=== PATIENT | female | born 1985 | race Caucasian/White ===

== ENCOUNTER 2018-09-22 22:12 | Emergency (ER) | payer MEDICAID ==
[~2018-09-22] VITALS: Ht 170.2 cm; Wt 161.8 kg
[~2018-09-22 22:12] MED LIST: CLIN300C13 PO; PHEN-786 PO; TRAM50TA2 PO; [UNRECOGNIZED DRUG - CODE] PO
[2018-09-22 22:20] VITALS: BP 182/104
[2018-09-22] MEDS ORDERED: SALI10LI TOP (22:58)
== END 2018-09-22 23:06 | disposition home or self-care (01) ==
LOC: ER 22:13
DX: B07.9 Viral wart, unspecified (principal); Z88.0 Allergy status to penicillin; Z88.2 Allergy status to sulfonamides; Z79.899 Other long term (current) drug therapy
CPT/HCPCS: 99282

== ENCOUNTER 2018-12-31 13:17 | Emergency (ER) | payer MEDICAID ==
[~2018-12-31] VITALS: Ht 170.2 cm; Wt 167.3 kg
[~2018-12-31 13:17] MED LIST changes: +SALI10LI TOP
[2018-12-31 15:44] VITALS: BP 179/99
== END 2018-12-31 15:14 | disposition home or self-care (01) ==
LOC: ER 13:18
DX: J02.8 Acute pharyngitis due to other specified organisms (principal); B97.89 Other viral agents as the cause of diseases classified elsewhere; F17.210 Nicotine dependence, cigarettes, uncomplicated; Z88.0 Allergy status to penicillin; Z88.2 Allergy status to sulfonamides; Z79.2 Long term (current) use of antibiotics; Z79.899 Other long term (current) drug therapy
CPT/HCPCS: 87081; 87880; 99283

== ENCOUNTER 2019-02-08 21:33 | Emergency (ER) | payer MEDICAID ==
[~2019-02-08] VITALS: Ht 170.2 cm; Wt 170.4 kg
[2019-02-08 22:04] LABS: URINE HCG NEGATIVE (NEG)
[2019-02-08 22:10] LABS: CLARITY,URINE SLIGHTLY CLOUDY (Clear); COLOR,URINE YELLOW (Yellow); GLUCOSE, URINE NEGATIVE (Neg); KETONES,URINE NEGATIVE (Neg); LEUKOCYTE ESTERASE ,URINE SMALL (Neg); NITRITES, URINE NEGATIVE (Neg); OCCULT BLOOD,URINE NEGATIVE (Neg); PH,URINE 5.5 (4.8-8.0); PROTEIN,URINE TRACE mg/dl (Neg); UROBILINOGEN,URINE 0.2 E.U/dL (0.2-1.0)
[2019-02-08 22:22] LABS: UA COLLECTION TYPE CLN CATCH MIDSTREAM
[2019-02-08 22:26] LABS: BACTERIA,URINE 1+ /HPF (Neg); SQUAMOUS EPITHELIAL CELL,UR MODERATE /LPF (FEW)
[2019-02-08] MEDS ORDERED: CEPH250T PO (22:30)
[2019-02-08 22:48] VITALS: BP 155/95
== END 2019-02-08 22:48 | disposition home or self-care (01) ==
LOC: ER 21:34
DX: N39.0 Urinary tract infection, site not specified (principal); Z88.0 Allergy status to penicillin; Z88.2 Allergy status to sulfonamides; Z79.899 Other long term (current) drug therapy
CPT/HCPCS: 81001; 81025; 87077; 87088; 87186; 99283

== ENCOUNTER 2019-03-12 13:28 | Emergency (ER) | payer MEDICAID ==
[~2019-03-12] VITALS: Ht 170.2 cm; Wt 165.9 kg
[2019-03-12 13:42] VITALS: BP 161/94
[2019-03-12] MEDS ORDERED: HYDR-4383 PO (15:28)
[2019-03-12] MEDS ORDERED: HYDROcodone/acetaminophen 5mg/325mg tablet PO ONE (15:30)
[2019-03-12] MEDS ORDERED: ketorolac trometh inj. 60 MG/2 ML VIAL IM ONE (15:30)
== END 2019-03-12 15:52 | disposition home or self-care (01) ==
LOC: ER 13:29
DX: S83.8X1A Sprain of other specified parts of right knee, initial encounter (principal); G89.29 Other chronic pain; I10 Essential (primary) hypertension; F17.200 Nicotine dependence, unspecified, uncomplicated; Z88.0 Allergy status to penicillin; Z88.2 Allergy status to sulfonamides; Z79.899 Other long term (current) drug therapy; W18.39XA Other fall on same level, initial encounter; Y93.89 Activity, other specified; Y92.89 Other specified places as the place of occurrence of the external cause; Y99.8 Other external cause status
CPT/HCPCS: 96372; 99283; J1885

== ENCOUNTER 2023-11-02 18:14 | Emergency (ER) | payer MEDICAID ==
[~2023-11-02] VITALS: Ht 170.2 cm; Wt 128.6 kg
[~2023-11-02 18:14] MED LIST changes: +CLIN-216 PO; -CLIN300C13 PO; +HYDR-4383 PO
[2023-11-02 18:29] VITALS: PULSE 89
[2023-11-02] MEDS ORDERED: MUPI22OI30 TOP (19:37)
[2023-11-02 19:43] VITALS: BP 134/82; RESP 18; TEMP 98.5; O2SAT 97
== END 2023-11-02 19:44 | disposition home or self-care (01) ==
LOC: ER 18:15
DX: S31.104A Unspecified open wound of abdominal wall, left lower quadrant without penetration into peritoneal cavity, initial encounter (principal); X58.XXXA Exposure to other specified factors, initial encounter; Y93.89 Activity, other specified; Y92.89 Other specified places as the place of occurrence of the external cause; Y99.8 Other external cause status
CPT/HCPCS: 99283; A6258; A6449

== ENCOUNTER 2024-11-04 12:09 | Emergency (ER) | payer MEDICAID ==
[~2024-11-04] VITALS: Ht 170.2 cm; Wt 127.3 kg
[2024-11-04 12:20] VITALS: TEMP 98
[2024-11-04 13:51] LABS: URINE HCG NEGATIVE (NEG)
[2024-11-04 14:16] LABS: MEAN PLATELET VOLUME 6.6 FL (7.4-10.4); RED CELL DISTRIBUTION WIDTH 12.8 % (11.5-14.5)
[2024-11-04 14:45] LABS: CREATININE 0.68 MG/DL (0.40-0.90); TOTAL CARBON DIOXIDE 27.3 MMOL/L (24-32); eCRCL 107 ML/MIN; eGFR > 90 ML/MIN
[2024-11-04 14:54] VITALS: PULSE 78; RESP 16; O2SAT 100
[2024-11-04 14:57] VITALS: BP 161/121
--- NOTE | 2024-11-04 15:06 | Physician Documentation ---
History of Present Illness ~ Chief Complaint: See Chief Complaint Stated Complaint: TEST Time Seen by MD: 14:05 Primary Medical Doctor: Dr. Blakely ([facility] Mode of Arrival: POV, Ambulatory HPI Patient is seen today with complaints of concern for possible . Patient states she missed her last. And states she has been on Wegovy for about a year in his lost about 100 lb states she was previously on blood pressure medication but stopped it because her blood pressure was going too low as she was losing weight. Patient currently denies any chest pain or shortness of breath or abdominal pain but does admit to some nausea but no vomiting or diarrhea. Patient has no other concern or complaint at this time. Medication Reconciliation Allergies: Coded Allergies: Penicillins (Verified Allergy, Unknown, 02/08/19) Sulfa (Sulfonamide Antibiotics) (Verified Allergy, Unknown, 02/08/19) Scheduled Clindamycin HCl (Clindamycin HCl), 1 CAP PO TID Nitrofurantoin Macrocrystal (Macrodantin), 100 MG PO QID Salicylic Acid (Salicylic Acid), 2 DROP TOP DAILY Scheduled PRN Hydrocodone/Acetaminophen ([place] 5-325 Tablet), 1 TAB PO Q12H PRN PRN for pain Phenazopyridine Hcl (Pyridium tablet), 1 TAB PO Q8H PRN for pain Tramadol HCl (Tramadol HCl), 50 MG PO Q6H PRN, (Reported) Past Medical History Past Medical History: Hypertension, UTI Past Surgical History: no surgical history Alcohol Use: None Drug Use: none Lives with: Family Lives In: Home Occupation: employed Review of Systems Constitutional: Denies: chills, fever, weakness Eyes: Denies: pain, blurred vision ENT: Denies: ear pain, nose pain, throat pain, mouth pain Respiratory: Denies: cough, shortness of breath Cardiovascular: Denies: chest pain, palpitations Gastrointestinal: Denies: abdominal pain, nausea, vomiting Genitourinary: Denies: burning, dysuria Female Genitalia: Denies: vaginal discharge, pelvic pain Neurological: Denies: headache, dizziness Musculoskeletal: Denies: pain, swelling Integumentary: Denies: rash, lesions Allergic/Immunologic: Denies: hives, itching Hematologic/Lymphatic: Denies: no symptoms reported Psychiatric: Denies: depression, anxiety Physical Exam Vital Signs: Temperature: 98.0, Source: Temporal, Heart Rate: 78, Respiratory Rate: 16, BP: 161/121, Pulse Oximetry: 100, Weight: 127.300 Oxygen Flow Rate: 0 Physical Exam General: Awake and Alert, no acute distress. HEENT: Conjunctiva pink, Sclera clear, Mucus Membranes moist. Neck: Supple without masses and tenderness. Resp: Unlabored. Lungs clear to auscultation bilaterally. Heart: Regular Rate and rhythm, normal S1 and S2 without murmur, rub or gallop. Abdomen: Soft and non tender no organomegaly Extremities: No cyanosis,clubbing or edema. Skin: Warm and Dry. Progress Results/Orders Results/Orders Orders - LILA CORONA PAC Urinalysis, Cult If Indicated (11/04/24 13:54) Completed Orders - LILA CORONA PAC Hcg Serum Qt (11/04/24 13:54) Cbc/Diff (11/04/24 13:54) BMP (11/04/24 13:54) Vital Signs 11/04/24 11/04/24 11/04/24 11/04/24 12:20 13:32 14:49 14:54 Temp 98.0 Pulse 97 86 78 Resp 16 16 16 16 B/P (MAP) 203/132 169/120 (136) 209/131 (157) Pulse Ox 98 96 100 O2 Flow Rate 0 0 0 11/04/24 14:57 B/P (MAP) 161/121 (134) Laboratory Tests Test 11/04/24 13:30 11/04/24 14:06 Urine HCG, Qualitative Negative White Blood Count 8.2 Red Blood Count 4.94 Hemoglobin 15.5 Hematocrit 45.0 Mean Corpuscular Volume 90.9 Mean Corpuscular Hemoglobin 31.3 H Mean Corpuscular Hemoglobin Concent 34.4 Red Cell Distribution Width 12.8 Platelet Count 271 Mean Platelet Volume 6.6 L Neutrophils (%) (Auto) 61.3 Lymphocytes (%) (Auto) 30.9 Monocytes (%) (Auto) 6.1 Eosinophils (%) (Auto) 1.0 Basophils (%) (Auto) 0.7 Neutrophils # (Auto) 5.1 Lymphocytes # (Auto) 2.5 Monocytes # (Auto) 0.5 Eosinophils # (Auto) 0.1 Basophils # (Auto) 0.1 CBC Comment Sodium Level 137 Potassium Level 3.5 Chloride Level 102 Carbon Dioxide Level 27.3 Anion Gap 8 Blood Urea Nitrogen 11 Creatinine 0.68 Estimated GFR/1.73 m2 > 90 BUN/Creatinine Ratio 16.2 Glucose Level 90 Calcium Level 9.3 Albumin 4.1 HCG Beta Subunit < 1.0 Chemistry Comments Medical Decision Making Findings Patient is seen today with complaints of concern for possible . Patient states she missed her last. And states she has been on Wegovy for about a year in his lost about 100 lb states she was previously on blood pressure medication but stopped it because her blood pressure was going too low as she was losing weight. Patient currently denies any chest pain or shortness of breath or abdominal pain but does admit to some nausea but no vomiting or diarrhea. Patient has no other concern or complaint at this time. Patient did have labs that were largely unremarkable as well as a urine hCG that was negative and a serum hCG quantitative that was negative. Patient will follow up with primary care for further eval and treatment of her blood pressure. Patient will continue blood pressure monitoring closely at home. Patient states her blood pressure usually is 130/70. Patient will return to ED with any worsening, concerning or changing symptoms. Departure Disposition: HOME / SELF CARE / HOMELESS Impression: Primary Impression: HTN (hypertension) Qualified Codes: I10 - Essential (primary) hypertension Additional Impression: Concern about unplanned without diagnosis Condition: Improved Discharge Instructions: Hypertension, Adult, [id number] Additional Instructions: Patient did have labs that were largely unremarkable as well as a urine hCG that was negative and a serum hCG quantitative that was negative. Patient will follow up with primary care for further eval and treatment of her blood pressure. Patient will continue blood pressure monitoring closely at home. Patient states her blood pressure usually is 130/70. Patient will return to ED with any worsening, concerning or changing symptoms. Referrals: NO PRIMARY CARE PROVIDER (PCP) Signature Scribe Signature: No scribe Attestation: No scribe LILA CORONA PAC Nov 04, 2024 15:06
== END 2024-11-04 15:13 | disposition home or self-care (01) ==
LOC: ER 12:10
DX: I10 Essential (primary) hypertension (principal); Z88.2 Allergy status to sulfonamides; Z88.0 Allergy status to penicillin; Z79.899 Other long term (current) drug therapy
CPT/HCPCS: 36415; 80048; 81025; 84702; 85025; 99283